=== PATIENT | female | born 1950 | race Caucasian/White ===

== ENCOUNTER → 2016-04-25 | Outpatient (CLI) | payer BC ==
--- NOTE | 2016-04-25 15:53 | DX ---
PA and Lateral Chest April 25, 2016 Indication: Cough and fatigue. Cardiac ablation March 2016. Comparison: Two-view chest dated June 29, 2015 Findings: The right lung is hypoventilated with new linear right basilar atelectasis. The left lung i s clear with unchanged linear scarring in the peripheral left midlung. Mild cardiomegaly and configur ation of the 3-lead pacemaker (with leads in right atrium, right ventricle, and coronary sinus) are u nchanged. No pneumothorax, pulmonary edema, consolidation, or effusion. Impression: 1. New right basilar atelectasis 2. No pleural effusion or evidence of failure. 3. Cardiomegaly unchanged.
== END ==
LOC: FIMAGING 15:38
PROVIDERS: ATTEND Family Medicine
DX: J98.11 Atelectasis (principal); I51.7 Cardiomegaly

== ENCOUNTER 2016-05-07 15:33 | Inpatient (IN) | payer BC ==
[2016-05-07] MEDS ORDERED: FUROSEMIDE 20 MG/2 ML VIAL IVP ONE (16:22)
[2016-05-07 17:07] LABS: ALANINE AMINOTRANSFERASE 50 IU/L (9-52); ALBUMIN 3.6 g/dL (3.5-5.0); ALKALINE PHOSPHATASE 153 IU/L (38-126); ANION GAP 12 mEq/L (8-16); ASPARTATE AMINOTRANSFERASE 44 IU/L (14-46); BILIRUBIN,TOTAL 1.8 mg/dL (0.1-1.4); CALCIUM 8.3 mg/dL (8.5-10.4); CARBON DIOXIDE 27 mEq/l (22-31); CHLORIDE 101 mEq/L (97-110); CREATININE 0.9 mg/dL (0.6-1.0); GLOMERULAR FILTRATION RATE > 60; GLUCOSE 92 mg/dL (70-100); MAGNESIUM 2.1 mg/dL (1.6-2.3); POTASSIUM 3.9 mEq/L (3.5-5.2); SODIUM 140 mEq/L (134-144); TOTAL PROTEIN 7.1 g/dL (6.3-8.2)
[2016-05-07 17:11] LABS: % IMMATURE GRANULYOCYTES 0.4 % (0.0-1.1); ABSOLUTE IMMATURE GRANULOCYTES 0.02 10^3/uL (0.00-0.10); ADD DIFF? NO; ADD MORPH? NO; ADD SCAN? NO; ATYPICAL LYMPHOCYTE FLAG 0 (0-99); FRAGMENT RBC FLAG 0 (0-99); HEMATOCRIT 44.8 % (38.0-47.0); HEMOGLOBIN 14.5 g/dL (12.6-16.3); LEFT SHIFT FLG 0 (0-99); LIPEMIA HEMOLYSIS FLAG 80 (0-99); MEAN CELL HEMOGLOBIN 30.3 pg (27.9-34.1); MEAN CELL HEMOGLOBIN CONCENTR. 32.4 g/dL (32.4-36.7); MEAN CELL VOLUME 93.7 fL (81.5-99.8); MEAN PLATELET VOLUME 11.1 fL (8.7-11.7); PLATELET CLUMPS FLAG 0 (0-99); PLATELET COUNT 187 10^3/uL (150-400); RED BLOOD CELL COUNT 4.78 10^6/uL (4.18-5.33); RED CELL DISTRIBUTION WIDTH 15.4 % (11.5-15.2)
[2016-05-07 17:15] LABS: PROTIME(PATIENT) 46.9 SEC (12.0-15.0)
[2016-05-07 17:18] LABS: INR 4.92 (0.83-1.16)
[2016-05-07 17:19] LABS: TROPONIN I 0.041 ng/mL (0-0.034)
--- NOTE | 2016-05-07 17:32 | DX ---
Chest, PA and Lateral History: CHF Comparison: April 25, 2016 PA and lateral Findings: A horizontal band density in the right lower lung is consistent with persistent platter ate lectasis. Cardiomegaly with normal pulmonary vascularity remains. Relative elevation of the right hem idiaphragm is again present and may indicate underlying hepatomegaly. Left chest wall pacer device wi th 3 pacer leads, including a coronary sinus lead, remains in place. EKG leads overlie the chest. Impression: 1. Little if any change x2 weeks. 2. Cardiomegaly without obvious decompensation.
[2016-05-07] MEDS: CARVEDILOL 6.25 MG TAB PO SCH (17:35)
[2016-05-07 18:21] LABS: COLOR PALE YELLOW; LEUKOCYTE ESTERASE,URINE 1+ (NEGATIVE); NITRITE,URINE NEGATIVE (NEGATIVE)
[2016-05-07 18:24] LABS: BACTERIA TRACE /hpf (NONE SEEN); MUCUS TRACE /lpf (NONE-1+)
[2016-05-07] MEDS: VALSARTAN 80 MG TAB PO SCH (21:46)
[2016-05-08] MEDS ORDERED: NITROGLYCERIN 0.4 MG BTL SL PRN (08:43)
[2016-05-08] MEDS: CARVEDILOL 6.25 MG TAB PO SCH ×2 (08:45→18:15)
[2016-05-08] MEDS: VALSARTAN 80 MG TAB PO SCH ×2 (08:49→20:53)
[2016-05-08] MEDS: ATORVASTATIN CALCIUM 40 MG TAB PO SCH (08:49)
[2016-05-08] MEDS: SERTRALINE HCL 50 MG TAB PO SCH (08:49)
[2016-05-08] MEDS: SPIRONOLACTONE 25 MG TAB PO SCH (08:49)
[2016-05-08] MEDS ORDERED: SPIRONOLACTONE 25 MG TAB PO SCH (09:00)
[2016-05-08] MEDS ORDERED: ONDANSETRON DISINTEGRATING 4 MG TAB PO PRN (09:49)
[2016-05-08] MEDS ORDERED: ONDANSETRON 4 MG/2 ML VIAL IVP PRN (09:49)
[2016-05-08] MEDS: ASPIRIN EC 81 MG TAB PO SCH (10:34)
--- NOTE | 2016-05-08 12:40 | SOAPPROG ---
ROGER Progress Note Assessment/Plan: Assessment: CHF note 65 y/o woman with CAD s/p remote PCI LAD in 2006, chronic ischemic chf last measured LVEF 40%, PAF and paroxysmal atach with BIVPPM who was admitted with dyspnea at rest and long sustained VT from clinic yesterday. Recent l/r cardiac cath 03/04 showed mild-moderate non-obstructive CAD with patent LAD stent and RHC: RA 16, PA 33/21, PCWP 14, CO/CI 4.1/1.9 L/min and echo 04/03 showed LVEF 40 % with mild-moderate MR and moderate TR. She reports is tired, short of breath at rest, has CP when she walks and feels her heart race. REC: 1)lasix 40mg IV q8hr 2)hold warfarin 3)upgrade to BIVAICD next week when INR < 1.6. 4)I will ask Dr. Castillo to do another right heart cath with swan mary beth hemodynamics in EP lab before AICD. I don't feel strongly she needs another coronary angiogram. 5)KCL 20meq PO TID. Keep K 4.5-5.2 6)rest of meds without changes. 7)unclear why RA 16 and low CI on last cath with LVEF at 40%. Question if patient has sarcoid. Would recommend PET scan at [facility] as out-pt in 1-2 months. 05/08/16 12:32 Subjective: Pt reports short of breath at rest and extreme fatigue. has CP and heart racing when walks 10-20ft. Has dry cough. Doesn't feel any different than yesterday. Objective: Vital Signs Temp Pulse Resp BP Pulse Ox 36.6 C 64 18 116/73 97 05/08/16 08:00 05/08/16 08:45 05/08/16 08:00 05/08/16 08:45 05/08/16 08:00 Laboratory Results 05/07/16 16:40 05/07/16 16:40 05/07/16 05/08/16 05/09/16 05:59 05:59 05:59 Intake Total 500 Output Total 300 Balance 200 PT 46.9 SEC (12.0-15.0) H 05/07/16 16:40 INR 4.92 (0.83-1.16) H 05/07/16 16:40 Physical Exam - Physical Exam General Appearance: obese EENT: PERRL/EOMI Neck: non-tender Respiratory: rales (at bases bilaterally.), No wheezing Cardiac/Chest: regular rate, rhythm, JVD (jvp to 7-8cm), systolic murmur, No gallop Peripheral Pulses: 2+: carotid (R), carotid (L), femoral (R), femoral (L), dorsalis-pedis (R), dorsalis-pedis (L) Abdomen: non-tender, soft, No organomegaly Skin: warm/dry Extremities: non-tender, No pedal edema Neuro/Psych: alert ICD10 Worksheet Patient Problems: Problems Problem Status Diagnosed Atrial fibrillation or flutter Acute Bradycardia Acute CHF (congestive heart failure) Acute Chest pain Acute Elevated troponin Acute
[2016-05-08] MEDS: FUROSEMIDE 100 MG/10 ML VIAL IVP SCH ×2 (13:16→15:47)
[2016-05-08] MEDS ORDERED: WARFARIN SODIUM 2.5 MG TAB PO SCH (16:00)
[2016-05-08] MEDS ORDERED: POTASSIUM CL 20 MEQ PKT PO SCH (16:00)
[2016-05-08] MEDS: FUROSEMIDE 40 MG/4 ML VIAL IVP SCH (20:53)
[2016-05-08] MEDS: POTASSIUM CL 20 MEQ TAB PO SCH (20:53)
[2016-05-08 21:19] LABS: ANION GAP 11 mEq/L (8-16); CALCIUM 8.1 mg/dL (8.5-10.4); CARBON DIOXIDE 29 mEq/l (22-31); CHLORIDE 98 mEq/L (97-110); CREATININE 0.9 mg/dL (0.6-1.0); GLOMERULAR FILTRATION RATE > 60; GLUCOSE 162 mg/dL (70-100); POTASSIUM 4.2 mEq/L (3.5-5.2); SODIUM 138 mEq/L (134-144)
[2016-05-08] MEDS: TEMAZEPAM 15 MG CAP PO PRN (23:14)
[2016-05-09] MEDS: FUROSEMIDE 40 MG/4 ML VIAL IVP SCH ×2 (04:19→15:15)
[2016-05-09 04:37] LABS: HEMATOCRIT 44.5 % (38.0-47.0); HEMOGLOBIN 14.2 g/dL (12.6-16.3); MEAN CELL HEMOGLOBIN 30.1 pg (27.9-34.1); MEAN CELL HEMOGLOBIN CONCENTR. 31.9 g/dL (32.4-36.7); MEAN CELL VOLUME 94.3 fL (81.5-99.8); RED BLOOD CELL COUNT 4.72 10^6/uL (4.18-5.33); RED CELL DISTRIBUTION WIDTH 15.2 % (11.5-15.2)
[2016-05-09 05:04] LABS: INR 4.21 (0.83-1.16); PROTIME(PATIENT) 41.4 SEC (12.0-15.0)
[2016-05-09 05:08] LABS: ANION GAP 8 mEq/L (8-16); CALCIUM 8.8 mg/dL (8.5-10.4); CARBON DIOXIDE 29 mEq/l (22-31); CHLORIDE 102 mEq/L (97-110); CREATININE 0.9 mg/dL (0.6-1.0); GLOMERULAR FILTRATION RATE > 60; GLUCOSE 98 mg/dL (70-100); MAGNESIUM 2.3 mg/dL (1.6-2.3); POTASSIUM 4.5 mEq/L (3.5-5.2); SODIUM 139 mEq/L (134-144)
[2016-05-09] MEDS: POTASSIUM CL 20 MEQ TAB PO SCH ×2 (09:06→21:59)
[2016-05-09] MEDS: SERTRALINE HCL 50 MG TAB PO SCH (09:06)
[2016-05-09] MEDS: ATORVASTATIN CALCIUM 40 MG TAB PO SCH (09:06)
[2016-05-09] MEDS: ASPIRIN EC 81 MG TAB PO SCH (09:06)
[2016-05-09] MEDS: VALSARTAN 80 MG TAB PO SCH (09:07)
[2016-05-09] MEDS: CARVEDILOL 6.25 MG TAB PO SCH ×2 (09:07→18:22)
[2016-05-09] MEDS: SPIRONOLACTONE 25 MG TAB PO SCH (09:07)
--- NOTE | 2016-05-09 14:21 | PDCARPN ---
Cardiology Progress Note Chief Complaint: Patient reports continues feeling short of breath with rest. Assessment/Plan: Assessment: 65-year-old female with history of CAD status post PCI of LAD in 2006, PAF and paroxysmal atrial tachycardia (EP procedure March 2016 unable to ablate successfully), remote Bi V PPM, obesity, and hyperlipidemia. Seen in office by Dr. Castillo on May 07 for complain of ongoing shortness of breath for greater than 2 weeks. Pacer interrogation shows 3 episodes of sustained ventricular tachycardia, longest was 9 minutes with average ventricular rate at 200 BPM. Most recent echocardiogram (04/07/2016) showed LV mildly dilated with reduced systolic function, EF 35%. Diastolic function dysfunction grade 2, global hypokinesis with septal thinning and dyskinesis, RV systolic function was moderately reduced, RV moderately dilated, LA is moderately to severely dilated , RA is moderately dilated, dilated inferior cava suggesting increased RA pressures, iacj-[id number] MR, severe TR, wide open TR,, RVSP 25 mm Hg, trace to mild AI, mild PI. Not admissions, noted BNP of 4460, mild troponin of 0.041. Downward trend since hospitalization. Supratherapeutic INR of 4.92. Overnight IV diuresed with Lasix 80 mg q.8 hours, weight is down 1 kilos, patient reports mild improvement in SOB, denies of any chest pressure. 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 Today, normal electrolyte and renal function, INR remains supratherapeutic at 4.21. Afebrile, hypotensive with systolic blood pressures in 80s. Patient reports ongoing fatigue and shortness with mild improvement after diuresis. Denies of any episodes of chest pressure. Plan: 1. Combined it chronic ischemic/nonischemic cardiomyopathy: NYHA class III-IV symptoms. Hypotensive after IV Lasix Q 8 hours. Will decrease her Diovan dose to 40 mg twice daily, stay with holding p.m. dose to this evening, decrease Lasix to 40 mg twice daily, with holding dose if systolic blood pressure less than 90 mm Hg. Continue on current dose of carvedilol, and Aldactone. Patient has Bi V pacing for resynchronization therapy, plan on right heart catheterization prior to device upgrade. Questions sarcoidosis, Dr. Dong recommends PET scan in 1-2 months as an outpatient 2. CAD: Patient had been reporting chest pressure with exertion, mild elevated troponin on downward decline (0.036 05/07). If continues to have chest pressure, consideration left heart catheterization also. Continue on anti- platelet therapy of aspirin, p.r.n. nitroglycerin 3. VT: Recent device check showing VT up to 9 minutes. Plan on generator upgrade to AICD when INR less than or equal to 1.6 4. AFib: Currently in sinus rhythm, Tikosyn due to VT. Continue on carvedilol. INRs are supratherapeutic, warfarin on hold for procedure. 5. Hyperlipidemia: Continue on home dose of atorvastatin. 6. DVT precaution: Supratherapeutic INR 7. Code status: Patient is a full code. 05/09/16 14:18 Subjective: Patient reports continuation of shortness of breath at rest, denies of any chest pain, palpitations, lightheadedness. Reviewed/Discussed With: multidisciplinary team (RN), other (Dr Stoll) Objective: Vital Signs (8 Hrs) Temp Pulse Resp BP Pulse Ox 05/09/16 12:00 36.7 C 63 20 87/58 L 96 05/09/16 07:31 36.8 C 89 18 95/71 L 96 Intake/Output (24 Hrs) 05/08/16 05/09/16 05/10/16 05:59 05:59 05:59 Intake Total 500 1610 250 Output Total 300 1750 1000 Balance 200 -140 -750 Intake: Oral (ml) 500 1610 250 Output: Urine (ml) 300 1750 1000 Toilet 300 1750 1000 Other: Weight 102.7 kg 102.4 kg Intake Quantity Yes Sufficient Output Comment Toilet reports one small laci-colored piece of stool Number of Stools Toilet 1 Result Diagrams: 05/09/16 04:19 05/09/16 04:19 Cardiac Labs: Cardiac Lab Results (72 Hrs) 05/07/16 05/07/16 22:10 16:40 Troponin I 0.036 H 0.041 H - Physical Exam Constitutional: WDWN, obese Ears, Nose, Mouth, Throat: moist mucous membranes Cardiovascular: regular rate and rhythm, systolic murmur (3/6 systolic murmur along left sternal border.), pulses symmetric bilat, No no murmurs, No jugular vein distention, No carotid bruit Peripheral Pulses: 1+: dorsalis-pedis (R), dorsalis-pedis (L), 2+: carotid (R), carotid (L) Gastrointestinal: other (Lungs diminished in bases bilateral, no rubs or rhonchi severe wheezing noted. No accessary muscle use, no intercostal muscle retraction noted) Skin: no rashes, warm, no edema Neurologic: AAOx3 Psychiatric: cooperative, interactive, following commands ICD10 Worksheet Patient Problems: Problems Problem Status Diagnosed Atrial fibrillation or flutter Acute Bradycardia Acute CHF (congestive heart failure) Acute Chest pain Acute Elevated troponin Acute
--- NOTE | 2016-05-09 15:16 | DX ---
PA and lateral chest - May 09, 2016 History: Shortness of breath, possible CHF. Comparison: PA and lateral chest May 07, 2016. Findings: Lung volumes remain low with elevation of the right hemidiaphragm. A linear opacity in the right lung base suggesting platelike atelectasis is not significantly changed. There is no pneumothor ax or visible pleural effusion. Moderate cardiomegaly is stable. 3-lead left subclavian pacemaker is again noted. The bones are stable. Impression: Stable chest with platelike atelectasis in the right lung base.
[2016-05-09] MEDS ORDERED: POTASSIUM CL 20 MEQ/15 ML UDCUP PO SCH (21:00)
[2016-05-09] MEDS: TEMAZEPAM 15 MG CAP PO PRN (21:59)
[2016-05-10 04:25] LABS: INR 3.38 (0.83-1.16); PROTIME(PATIENT) 34.7 SEC (12.0-15.0)
[2016-05-10 04:36] LABS: ANION GAP 10 mEq/L (8-16); CALCIUM 8.6 mg/dL (8.5-10.4); CARBON DIOXIDE 28 mEq/l (22-31); CHLORIDE 102 mEq/L (97-110); CREATININE 0.8 mg/dL (0.6-1.0); GLOMERULAR FILTRATION RATE > 60; GLUCOSE 91 mg/dL (70-100); POTASSIUM 4.7 mEq/L (3.5-5.2); SODIUM 140 mEq/L (134-144)
[2016-05-10] MEDS: CARVEDILOL 6.25 MG TAB PO SCH ×3 (05:08→18:04)
--- NOTE | 2016-05-10 08:32 | CPEKG ---
Heart Rate: 95 RR Interval: 632 P-R Interval: 140 QRSD Interval: 148 QT Interval: 432 QTC Interval: 543 QRS Moore: 119 T Wave Moore: 29 EKG Severity - ABNORMAL ECG - EKG Impression: A-V DUAL-PACED COMPLEXES W/ SOME INHIBITION Electronically Signed By: Seymour Pichardo 11-May-2016 10:06:40
[2016-05-10] MEDS: SPIRONOLACTONE 25 MG TAB PO SCH (08:36)
[2016-05-10] MEDS: SERTRALINE HCL 50 MG TAB PO SCH (08:36)
[2016-05-10] MEDS: VALSARTAN 40 MG TAB PO SCH ×2 (08:36→20:41)
[2016-05-10] MEDS: POTASSIUM CL 20 MEQ TAB PO SCH ×2 (08:36→20:40)
[2016-05-10] MEDS: ASPIRIN EC 81 MG TAB PO SCH (08:37)
[2016-05-10] MEDS: ATORVASTATIN CALCIUM 40 MG TAB PO SCH (08:37)
[2016-05-10] MEDS: FUROSEMIDE 40 MG/4 ML VIAL IVP SCH ×2 (10:26→15:01)
--- NOTE | 2016-05-10 13:24 | PDCARPN ---
Cardiology Progress Note Assessment/Plan: Assessment/Plan: Assessment: 65-year-old female with history of CAD status post PCI of LAD in 2006, PAF and paroxysmal atrial tachycardia (EP procedure March 2016 unable to ablate successfully), remote Bi V PPM, obesity, and hyperlipidemia. Seen in office by Dr. Castillo on May 07 for complain of ongoing shortness of breath for greater than 2 weeks. Pacer interrogation shows 3 episodes of sustained ventricular tachycardia, longest was 9 minutes with average ventricular rate at 200 BPM. Most recent echocardiogram (04/07/2016) showed LV mildly dilated with reduced systolic function, EF 35%. Diastolic function dysfunction grade 2, global hypokinesis with septal thinning and dyskinesis, RV systolic function was moderately reduced, RV moderately dilated, LA is moderately to severely dilated , RA is moderately dilated, dilated inferior cava suggesting increased RA pressures, [id number] MR, severe TR, wide open TR,, RVSP 25 mm Hg, trace to mild AI, mild PI. Not admissions, noted BNP of 4460, mild troponin of 0.041. Downward trend since hospitalization. Supratherapeutic INR of 4.92. Overnight IV diuresed with Lasix 80 mg q.8 hours, weight is down 1 kilos, patient reports mild improvement in SOB, denies of any chest pressure. 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 Today, normal electrolyte and renal function, INR remains supratherapeutic at 4.21. Afebrile, hypotensive with systolic blood pressures in 80s. Patient reports ongoing fatigue and shortness with mild improvement after diuresis. Denies of any episodes of chest pressure. Plan: 1. Combined it chronic ischemic/nonischemic cardiomyopathy: NYHA class III-IV symptoms. Hypotensive after IV Lasix Q 8 hours. Will decrease her Diovan dose to 40 mg twice daily, stay with holding p.m. dose to this evening, decrease Lasix to 40 mg twice daily, with holding dose if systolic blood pressure less than 90 mm Hg. Continue on current dose of carvedilol, and Aldactone. Patient has Bi V pacing for resynchronization therapy, plan on right heart catheterization prior to device upgrade. Questions sarcoidosis, Dr. Garcia recommends PET scan in 1-2 months as an outpatient 2. CAD: Patient had been reporting chest pressure with exertion, mild elevated troponin on downward decline (0.036 1/19). If continues to have chest pressure, consideration left heart catheterization also. Continue on anti- platelet therapy of aspirin, p.r.n. nitroglycerin 3. VT: Recent device check showing VT up to 9 minutes. Plan on generator upgrade to AICD when INR less than or equal to 1.6 4. AFib: Currently in sinus rhythm, Tikosyn due to VT. Continue on carvedilol. INRs are supratherapeutic, warfarin on hold for procedure. 5. Hyperlipidemia: Continue on home dose of atorvastatin. 6. DVT precaution: Supratherapeutic INR JJD: THE PATIENT CONTINUES TO HAVE AN ELEVATED INR AT 3.38 WILL GIVE ORAL VITAMIN K TO GET THAT TO AROUND 2 SO THAT BI V DEFIB UPGRADE CAN PROCEED HOPEFULLY IN AM. Plan: 05/10/16 13:21 Reviewed/Discussed With: hospitalist Time Spent With Patient: 15 MINUTES Objective: Vital Signs (8 Hrs) Temp Pulse Resp BP Pulse Ox 05/10/16 11:34 36.6 C 90 16 98/72 L 97 05/10/16 10:24 96/63 L 05/10/16 07:51 36.9 C 67 19 85/69 L 95 Intake/Output (24 Hrs) 05/09/16 05/10/16 05/11/16 05:59 05:59 05:59 Intake Total 1610 850 Output Total 1750 1100 Balance -140 -250 Intake: Oral (ml) 1610 850 Output: Urine (ml) 1750 1100 Toilet 1750 1100 Other: Weight 102.4 kg 103 kg Intake Quantity Yes Yes Sufficient Output Comment Toilet reports one small laci-colored piece of stool Number of Voids Toilet 3 Number of Stools Toilet 1 Result Diagrams: 05/09/16 04:19 05/10/16 03:34 Cardiac Labs: Cardiac Lab Results (72 Hrs) 05/07/16 05/07/16 22:10 16:40 Troponin I 0.036 H 0.041 H - Physical Exam Constitutional: obese Eyes: PERRL, anicteric sclera Ears, Nose, Mouth, Throat: moist mucous membranes Cardiovascular: systolic murmur, irregularly irregular Respiratory: no crackles, no wheezes, reduced air movement Gastrointestinal: normoactive bowel sounds Neurologic: AAOx3 Psychiatric: cooperative, interactive, anxious - . Pending Discharge Within 24 Hours: No Pending Discharge Within 48 Hours: No ICD10 Worksheet Patient Problems: Problems Problem Status Diagnosed Atrial fibrillation or flutter Acute Bradycardia Acute CHF (congestive heart failure) Acute Chest pain Acute Elevated troponin Acute
[2016-05-10] MEDS ORDERED: PHYTONADIONE 2.5 MG/2.5 ML ORAL UDL PO ONE (13:25)
[2016-05-10] MEDS: TEMAZEPAM 15 MG CAP PO PRN (23:02)
[2016-05-11 05:18] LABS: INR 1.81 (0.83-1.16); PROTIME(PATIENT) 21.1 SEC (12.0-15.0)
[2016-05-11 05:19] LABS: APTT 37.7 SEC (23.0-38.0)
[2016-05-11 05:21] LABS: % IMMATURE GRANULYOCYTES 0.2 % (0.0-1.1); ABSOLUTE IMMATURE GRANULOCYTES 0.01 10^3/uL (0.00-0.10); ADD DIFF? NO; ADD MORPH? NO; ADD SCAN? NO; ATYPICAL LYMPHOCYTE FLAG 50 (0-99); FRAGMENT RBC FLAG 20 (0-99); HEMATOCRIT 41.7 % (38.0-47.0); HEMOGLOBIN 13.4 g/dL (12.6-16.3); LEFT SHIFT FLG 0 (0-99); LIPEMIA HEMOLYSIS FLAG 80 (0-99); MEAN CELL HEMOGLOBIN 30.6 pg (27.9-34.1); MEAN CELL HEMOGLOBIN CONCENTR. 32.1 g/dL (32.4-36.7); MEAN CELL VOLUME 95.2 fL (81.5-99.8); MEAN PLATELET VOLUME 11.4 fL (8.7-11.7); PLATELET CLUMPS FLAG 10 (0-99); PLATELET COUNT 142 10^3/uL (150-400); RED BLOOD CELL COUNT 4.38 10^6/uL (4.18-5.33); RED CELL DISTRIBUTION WIDTH 15.2 % (11.5-15.2)
[2016-05-11] MEDS ORDERED: diphenhydrAMINE 25 MG CAP PO ONE ×2 (06:00→15:00)
[2016-05-11] MEDS ORDERED: NS 1,000 ML IV ONE (06:00)
[2016-05-11] MEDS ORDERED: DIAZEPAM 5 MG TAB PO ONE ×2 (06:00→15:00)
[2016-05-11] MEDS ORDERED: BACITRACIN IRRIGATION/NS 50,000 UNITS/1,000 ML BTL IRR ONE (06:00)
[2016-05-11 06:21] LABS: ALANINE AMINOTRANSFERASE 45 IU/L (9-52); ALBUMIN 2.9 g/dL (3.5-5.0); ALKALINE PHOSPHATASE 152 IU/L (38-126); ANION GAP 9 mEq/L (8-16); ASPARTATE AMINOTRANSFERASE 30 IU/L (14-46); BILIRUBIN,TOTAL 1.5 mg/dL (0.1-1.4); CALCIUM 8.4 mg/dL (8.5-10.4); CARBON DIOXIDE 28 mEq/l (22-31); CHLORIDE 102 mEq/L (97-110); CREATININE 0.7 mg/dL (0.6-1.0); GLOMERULAR FILTRATION RATE > 60; GLUCOSE 85 mg/dL (70-100); POTASSIUM 4.4 mEq/L (3.5-5.2); SODIUM 139 mEq/L (134-144); TOTAL PROTEIN 6.2 g/dL (6.3-8.2)
[2016-05-11] MEDS: POTASSIUM CL 20 MEQ TAB PO SCH ×2 (09:30→20:26)
[2016-05-11] MEDS: CARVEDILOL 6.25 MG TAB PO SCH ×2 (09:30→20:26)
[2016-05-11] MEDS: VALSARTAN 40 MG TAB PO SCH ×2 (09:30→20:26)
[2016-05-11] MEDS: FUROSEMIDE 40 MG/4 ML VIAL IVP SCH ×2 (09:31→20:30)
[2016-05-11] MEDS: ATORVASTATIN CALCIUM 40 MG TAB PO SCH (09:57)
[2016-05-11] MEDS: SPIRONOLACTONE 25 MG TAB PO SCH (09:57)
[2016-05-11] MEDS: ASPIRIN EC 81 MG TAB PO SCH (09:57)
[2016-05-11] MEDS: SERTRALINE HCL 50 MG TAB PO SCH (09:58)
--- NOTE | 2016-05-11 12:24 | PDCARPN ---
Cardiology Progress Note Assessment/Plan: Assessment: Ischemic and nonischemic cardiomyopathy Left ventricular ejection fraction 35% Sustained ventricular tachycardia for 9 minutes - plan upgrade to biventricular ICD from biventricular pacemaker today. Plan to measure right heart pressures at the same time - risk of device change discussed with the patient including risk of infection and risk of LV lead dislodgement. - Advised patient not to drive for 6 months - evaluation for sarcoidosis with PET-CT scan in 1-[address] Garcia 05/11/16 12:22 Objective: Vital Signs (8 Hrs) Temp Pulse Resp BP Pulse Ox 05/11/16 08:00 36.7 C 67 16 102/78 96 Intake/Output (24 Hrs) 05/10/16 05/11/16 05/12/16 11:59 11:59 11:59 Intake Total 600 250 Output Total 400 1974 Balance 200 -1725 Intake: Oral (ml) 600 250 Output: Urine (ml) 400 1974 Toilet 400 1974 Other: Weight 103 kg 103.1 kg Intake Quantity Yes npo Sufficient Number of Voids Toilet 3 2 Number of Stools Toilet 1 Result Diagrams: 05/11/16 04:22 05/11/16 04:22 ICD10 Worksheet Patient Problems: Problems Problem Status Diagnosed Atrial fibrillation or flutter Acute Bradycardia Acute CHF (congestive heart failure) Acute Chest pain Acute Elevated troponin Acute
[2016-05-11] MEDS ORDERED: ceFAZolin 2 GM/DEXTROSE 100 ML IV ONE (12:30)
[2016-05-11] MEDS ORDERED: IOPAMIDOL (ISOVUE-370) 150 ML BTL IV ONE (15:47)
[2016-05-11] MEDS ORDERED: BUPIVACAINE 0.5% 30 ML SDV ONE (15:47)
[2016-05-11] MEDS ORDERED: LIDOCAINE 1% 30 ML SDV ONE (15:47)
[2016-05-11] MEDS ORDERED: MIDAZOLAM 2 MG/2 ML VIAL ONE (16:03)
[2016-05-11] MEDS ORDERED: LIDOCAINE 2% 100 MG/5 ML SYR IVP ONE (16:11)
[2016-05-11] MEDS ORDERED: PROPOFOL/EMULSION 500 MG/50 ML BOTTLE IV ONE (16:11)
--- NOTE | 2016-05-11 18:44 | CPEKG ---
Heart Rate: 70 RR Interval: 857 P-R Interval: 140 QRSD Interval: 150 QT Interval: 488 QTC Interval: 527 P Duarte: 134 QRS Duarte: 203 T Wave Duarte: 70 EKG Severity - ABNORMAL ECG - EKG Impression: ATRIAL-VENTRICULAR DUAL-PACED RHYTHM Electronically Signed By: Heron Meredith 11-May-2016 19:51:21
--- NOTE | 2016-05-11 18:58 | DX ---
Portable Chest , 18:50 History: Pacemaker placement Comparison: May 09 Findings: A new left chest wall defibrillator device has been placed. A left atrial, 2 left ventricul ar and 1 coronary sinus lead are present. There is no pneumothorax. Inspiratory phase is poor. An obl ique band density in the right lower lung is stable. The costophrenic gutters remain sharp. Impression: Excellent position of a new right ventricular auto defibrillator lead. No pneumothorax.
[2016-05-11] MEDS: HYDROCODONE/APAP 5/325 TAB PO PRN (21:24)
[2016-05-11] MEDS: TEMAZEPAM 15 MG CAP PO PRN (23:11)
[2016-05-12] MEDS: HYDROCODONE/APAP 5/325 TAB PO PRN (05:24)
[2016-05-12 05:33] LABS: % IMMATURE GRANULYOCYTES 0.2 % (0.0-1.1); ABSOLUTE IMMATURE GRANULOCYTES 0.01 10^3/uL (0.00-0.10); ADD DIFF? NO; ADD MORPH? NO; ADD SCAN? NO; ATYPICAL LYMPHOCYTE FLAG 20 (0-99); FRAGMENT RBC FLAG 0 (0-99); HEMATOCRIT 41.9 % (38.0-47.0); HEMOGLOBIN 13.5 g/dL (12.6-16.3); LEFT SHIFT FLG 0 (0-99); LIPEMIA HEMOLYSIS FLAG 80 (0-99); MEAN CELL HEMOGLOBIN CONCENTR. 32.2 g/dL (32.4-36.7); MEAN CELL VOLUME 96.1 fL (81.5-99.8); MEAN PLATELET VOLUME 10.8 fL (8.7-11.7); PLATELET CLUMPS FLAG 0 (0-99); PLATELET COUNT 140 10^3/uL (150-400); RED BLOOD CELL COUNT 4.36 10^6/uL (4.18-5.33); RED CELL DISTRIBUTION WIDTH 15.2 % (11.5-15.2)
[2016-05-12 05:44] LABS: INR 1.35 (0.83-1.16); PROTIME(PATIENT) 16.7 SEC (12.0-15.0)
[2016-05-12 06:06] LABS: ANION GAP 8 mEq/L (8-16); CALCIUM 8.4 mg/dL (8.5-10.4); CARBON DIOXIDE 28 mEq/l (22-31); CHLORIDE 102 mEq/L (97-110); CREATININE 0.7 mg/dL (0.6-1.0); GLOMERULAR FILTRATION RATE > 60; GLUCOSE 97 mg/dL (70-100); POTASSIUM 4.7 mEq/L (3.5-5.2); SODIUM 138 mEq/L (134-144)
[2016-05-12] MEDS: FUROSEMIDE 40 MG/4 ML VIAL IVP SCH (09:02)
[2016-05-12] MEDS: CARVEDILOL 6.25 MG TAB PO SCH ×2 (09:02→18:05)
[2016-05-12] MEDS: POTASSIUM CL 20 MEQ TAB PO SCH (09:02)
[2016-05-12] MEDS: ASPIRIN EC 81 MG TAB PO SCH (09:03)
[2016-05-12] MEDS: ATORVASTATIN CALCIUM 40 MG TAB PO SCH (09:03)
[2016-05-12] MEDS: SERTRALINE HCL 50 MG TAB PO SCH (09:04)
[2016-05-12] MEDS: VALSARTAN 40 MG TAB PO SCH (09:04)
--- NOTE | 2016-05-12 09:05 | CPEKG ---
Heart Rate: 70 RR Interval: 857 P-R Interval: 136 QRSD Interval: 134 QT Interval: 476 QTC Interval: 514 QRS Spearman: -51 T Wave Spearman: 125 EKG Severity - ABNORMAL ECG - EKG Impression: ATRIAL-VENTRICULAR DUAL-PACED COMPLEXES EKG Impression: LEFT BUNDLE BRANCH BLOCK Electronically Signed By: Heron Meredith 13-May-2016 08:24:05
[2016-05-12] MEDS: SPIRONOLACTONE 25 MG TAB PO SCH (09:24)
--- NOTE | 2016-05-12 11:29 | DX ---
Chest, PA and Lateral History: Post pacer placement COMPARISON: Portable exam yesterday Findings: A left chest wall pacer device with overlying skin mony remains in stable position. The 4 pacer leads are unchanged in position and again overlie the enlarged heart. There is stable platter atelectasis in the right lower lung. There is no pneumothorax or pleural fluid. EKG leads again over lie the chest. Impression: Stable pacer placement.
[2016-05-12] MEDS ORDERED: FUROSEMIDE 40 MG/4 ML VIAL IVP ONE (11:41)
[2016-05-12] MEDS ORDERED: PROTOCOL MAGNESIUM 1 DOSE IV PRN (11:51)
[2016-05-12] MEDS ORDERED: PROTOCOL POTASSIUM 1 DOSE MISC PRN (11:51)
[2016-05-12] MEDS ORDERED: METOLAZONE 2.5 MG TAB PO ONE (12:00)
--- NOTE | 2016-05-12 14:15 | PDCARPN ---
Cardiology Progress Note Chief Complaint: She has incisonal site pain, report no significant improvement in SOB Assessment/Plan: Assessment: 65-year-old female with history of CAD status post PCI of LAD in 2006, PAF and paroxysmal atrial tachycardia (EP procedure March 2016 unable to ablate successfully), remote Bi V PPM, obesity, and hyperlipidemia. Seen in office by Dr. Castillo on May 07 for complain of ongoing shortness of breath for greater than 2 weeks. Pacer interrogation shows 3 episodes of sustained ventricular tachycardia, longest was 9 minutes with average ventricular rate at 200 BPM. Most recent echocardiogram (04/07/2016) showed LV mildly dilated with reduced systolic function, EF 35%. Diastolic function dysfunction grade 2, global hypokinesis with septal thinning and dyskinesis, RV systolic function was moderately reduced, RV moderately dilated, LA is moderately to severely dilated , RA is moderately dilated, dilated inferior cava suggesting increased RA pressures, [id number] MR, severe TR, wide open TR,, RVSP 25 mm Hg, trace to mild AI, mild PI. Noted BNP on admission of 4460, mild troponin of 0.041. Downward trend since hospitalization. Upgraded by Bi V AICD done yesterday by Dr. Castillo. Incision intact, dressing CDI, no redness, swelling, or drainage noted. No ecchymosis or hematoma. AICD check done today showing device functioning within normal limits, noting frequent PVCs. Potassium within normal limits. INR 1.3, chest x-ray showing atelectasis in right lower lobe no pneumothorax, stable pacer placement. Electrocardiogram at this time shows AV paced with occasional PVC. No runs no runs of VT on continuous cardiac monitoring. Renal function wnl. Patient reports ongoing shortness of breath has improved with diuresis. Patient up in chair, able to walk around room. No significant weight loss. Plan: 1. Combined it chronic ischemic/nonischemic cardiomyopathy: NYHA class III-IV symptoms. No significant weight loss in the last few days, despite IV diuretics. Discussed with Dr. Stoll, increase Lasix to 80 mg IV today, who give 1 dose of metolazone had 2.5 mg.. Placed on magnesium and potassium electrolyte protocol. Device upgrade yesterday Bi V AICD and new RV lead implantation. No complications. Continue on carvedilol, valsartan, and Aldactone. Strict daily weights, I&Os. Questions sarcoidosis, Dr. Dong recommends PET scan in 1-2 months as an outpatient 2. CAD: Patient reports no further episodes of chest pressure in the last 2 days. mild elevated troponin on admission with downward decline (0.036 05/07). Continue on anti-platelet therapy of aspirin, p.r.n. nitroglycerin 3. VT: No episodes this hospitalization, AICD, monitoring potassium and magnesium. 4. AFib: Currently AV paced, Tikosyn DC per Dr. Castillo. Continue on carvedilol as above, restarted on warfarin, will not be bridged with Lovenox to prevent hematoma in new device pocket. Repeat INR in a.m.. 5. Hyperlipidemia: Continue on home dose of atorvastatin. 6. Atelectasis in right lower lobe: Incentive spirometer q.1 hour while awake. Patient up in chair, and walking. 7. DVT precaution: Restarted on warfarin 8. Code status: Patient is a full code. 05/12/16 14:12 Subjective: Patient denies any cp or palpitation. Report continue to have SOB at rest with little improvement since admission Objective: Vital Signs (8 Hrs) Temp Pulse Resp BP Pulse Ox 05/12/16 12:00 36.8 C 87 17 95/66 L 94 05/12/16 08:00 36.7 C 70 18 93/66 L 95 Intake/Output (24 Hrs) 05/11/16 05/12/16 05/13/16 05:59 05:59 05:59 Intake Total 250 510 Output Total 1100 1325 550 Balance -850 -815 -550 Intake: Oral (ml) 250 500 IV Intake (ml) 10 Output: Urine (ml) 1100 1325 550 Toilet 1100 1325 550 Other: Weight 103.1 kg 102.8 kg Intake Quantity npo Sufficient Number of Voids Toilet 2 Number of Stools Toilet 1 Result Diagrams: 05/12/16 05:19 05/12/16 05:19 - Physical Exam Constitutional: no apparent distress, obese Ears, Nose, Mouth, Throat: moist mucous membranes Cardiovascular: regular rate and rhythm, jugular vein distention (2/3 systolic murmur noted over left sternal border), pulses symmetric bilat, No carotid bruit Peripheral Pulses: 1+: dorsalis-pedis (R), dorsalis-pedis (L), 2+: carotid (R), carotid (L) Respiratory: other (Lungs diminished in bases bilateral, no rhonchi, rales, or wheezing noted.) Gastrointestinal: normoactive bowel sounds, no masses Skin: warm, no edema Neurologic: AAOx3, CN II-XII grossly intact Psychiatric: cooperative, interactive, following commands ICD10 Worksheet Patient Problems: Problems Problem Status Diagnosed Atrial fibrillation or flutter Acute Bradycardia Acute CHF (congestive heart failure) Acute Chest pain Acute Elevated troponin Acute
[2016-05-12] MEDS ORDERED: FUROSEMIDE 100 MG/10 ML VIAL IVP SCH (15:00)
[2016-05-12] MEDS: WARFARIN SODIUM 2.5 MG TAB PO SCH (18:05)
[2016-05-12 19:16] LABS: POTASSIUM 4.7 mEq/L (3.5-5.2)
[2016-05-12] MEDS ORDERED: ENOXAPARIN 100 MG/ML SYR SC SCH (21:00)
[2016-05-12] MEDS: TEMAZEPAM 15 MG CAP PO PRN (21:18)
[2016-05-12] MEDS: ACETAMINOPHEN 325 MG TAB PO PRN (21:18)
[2016-05-13] MEDS: VALSARTAN 40 MG TAB PO SCH ×2 (04:07→08:34)
[2016-05-13 05:18] LABS: INR 1.3 (0.83-1.16); PROTIME(PATIENT) 16.2 SEC (12.0-15.0)
[2016-05-13 05:37] LABS: ANION GAP 9 mEq/L (8-16); CALCIUM 8.7 mg/dL (8.5-10.4); CARBON DIOXIDE 30 mEq/l (22-31); CHLORIDE 97 mEq/L (97-110); CREATININE 0.7 mg/dL (0.6-1.0); GLOMERULAR FILTRATION RATE > 60; GLUCOSE 93 mg/dL (70-100); MAGNESIUM 2.2 mg/dL (1.6-2.3); POTASSIUM 4.2 mEq/L (3.5-5.2); SODIUM 136 mEq/L (134-144)
[2016-05-13] MEDS: CARVEDILOL 6.25 MG TAB PO SCH ×2 (08:32→17:24)
[2016-05-13] MEDS: ASPIRIN EC 81 MG TAB PO SCH (08:33)
[2016-05-13] MEDS: ATORVASTATIN CALCIUM 40 MG TAB PO SCH (08:33)
[2016-05-13] MEDS: SERTRALINE HCL 50 MG TAB PO SCH (08:34)
[2016-05-13] MEDS: SPIRONOLACTONE 25 MG TAB PO SCH (08:37)
[2016-05-13] MEDS ORDERED: FUROSEMIDE 80 MG in D5W 50 ML IV SCH (09:00)
[2016-05-13] MEDS ORDERED: METOLAZONE 5 MG TAB PO ONE (09:21)
[2016-05-13] MEDS ORDERED: NS 250 ML IV ONE (13:21)
--- NOTE | 2016-05-13 14:11 | PDCARPN ---
Cardiology Progress Note Chief Complaint: Reports improvement in shortness of breath. Assessment/Plan: Assessment: 65-year-old female with history of CAD status post PCI of LAD in 2006, PAF and paroxysmal atrial tachycardia (EP procedure March 2016 unable to ablate successfully), remote Bi V PPM, obesity, and hyperlipidemia. Seen in office by Dr. Castillo on May 07 for complain of ongoing shortness of breath for greater than 2 weeks. Pacer interrogation shows 3 episodes of sustained ventricular tachycardia, longest was 9 minutes with average ventricular rate at 200 BPM. Most recent echocardiogram (04/07/2016) showed LV mildly dilated with reduced systolic function, EF 35%. Diastolic function dysfunction grade 2, global hypokinesis with septal thinning and dyskinesis, RV systolic function was moderately reduced, RV moderately dilated, LA is moderately to severely dilated , RA is moderately dilated, dilated inferior cava suggesting increased RA pressures, [id number] MR, severe TR, wide open TR, RVSP 25 mm Hg, trace to mild AI, mild PI. Noted BNP on admission of 4460, mild troponin of 0.041. Downward trend since hospitalization. Upgraded by Bi V AICD done 05/12/[address] Castillo. AICD check done on 05/12/2016 showing device functioning within normal limits, noting frequent PVCs. Potassium within normal limits. No significant change in INR, 1.3, restarted warfarin yesterday, not bridging due to prevent hematoma in AICD pocket. Weight is down 1.5 kilos. Patient AV paced occasional PVC., occasional couplet noted, no VT. BUN creatinine staying stable despite increasing diuresis. Patient reports shortness of breath has improved, has noted lightheadedness episodes briefly when standing since starting. Plan: 1. Combined it chronic ischemic/nonischemic cardiomyopathy: NYHA class III-IV symptoms. Improvement in weight loss with the increase of Lasix and adding low- dose metolazone. Patient's weight is down 1.5 kilos from yesterday. Discussed with Dr. Dong today, will increase metolazone to 5 mg, no change in Lasix dosage. Continue on current diuretic dose. Continue on Diovan, Coreg, and Aldactone. Strict daily weights, I&Os. Questions sarcoidosis, Dr. Dong recommends PET scan in 1-2 months as an outpatient 2. CAD: Patient reports no further episodes of chest pressure in the last 2 days. mild elevated troponin on admission with downward decline (0.036 05/07). Continue on anti-platelet therapy of aspirin, p.r.n. nitroglycerin 3. VT: No episodes this hospitalization, AICD, monitoring potassium and magnesium. 4. AFib: Currently AV paced. Continue on carvedilol as above, subtherapeutic INRs at 1.3, restarted on warfarin yesterday. Not bridged with Lovenox to prevent hematoma in new device pocket. Repeat INR in a.m.. 5. Hyperlipidemia: Continue on home dose of atorvastatin. 6. Atelectasis in right lower lobe: Incentive spirometer q.1 hour while awake. Patient up in chair, and walking. 7. DVT precaution: Restarted on warfarin 8. Code status: Patient is a full code. 05/13/16 10:15 Subjective: Patient reports improvement in dyspnea on exertion, reports some lightheadedness with positional changing, denies of any chest pain or pressure. Denies of any palpitations, near-syncope or syncopal events. Denies of any therapeutic shocks from AICD. Reviewed/Discussed With: other (Dr Garcia and Dr Valentine) Objective: Vital Signs (8 Hrs) Temp Pulse Resp BP Pulse Ox 05/13/16 11:45 36.4 C 85 13 75/48 L 93 05/13/16 08:34 90/71 L 05/13/16 08:32 90 90/71 L 05/13/16 07:44 36.7 C 89 19 89/61 L 95 Intake/Output (24 Hrs) 05/12/16 05/13/16 05/14/16 05:59 05:59 05:59 Intake Total 510 1000 Output Total 1325 4250 Balance -815 -3250 Intake: Oral (ml) 500 1000 IV Intake (ml) 10 Output: Urine (ml) 1325 4250 Toilet 1325 4250 Other: Weight 102.8 kg 101.3 kg Number of Voids Toilet 1 Number of Stools Toilet 1 Result Diagrams: 05/12/16 05:19 05/13/16 04:14 - Physical Exam Constitutional: no apparent distress, obese Ears, Nose, Mouth, Throat: moist mucous membranes Cardiovascular: regular rate and rhythm (AV paced with occasional PVC.), no rubs , no gallops, systolic murmur (1 to 2/6 along left sternal border.), jugular vein distention (3-4 cm above sternal notch at a 45 degree angle.), pulses symmetric bilat, No carotid bruit Peripheral Pulses: 1+: dorsalis-pedis (R), dorsalis-pedis (L), 2+: carotid (R), carotid (L) Respiratory: other (Lungs are clear but diminished in bases bilateral, no rhonchi rales or wheezes uses, no accessory muscle use, no intercostal muscle retraction of) Gastrointestinal: normoactive bowel sounds Skin: warm, no edema Neurologic: AAOx3, CN II-XII grossly intact Psychiatric: cooperative, interactive, following commands ICD10 Worksheet Patient Problems: Problems Problem Status Diagnosed Atrial fibrillation or flutter Acute Bradycardia Acute CHF (congestive heart failure) Acute Chest pain Acute Elevated troponin Acute
[2016-05-13] MEDS: WARFARIN SODIUM 2.5 MG TAB PO SCH (16:35)
--- NOTE | 2016-05-13 17:37 | SOAPPROG ---
SOAP Progress Note Assessment/Plan: Assessment: CHF note 65 y/o woman with CAD s/p remote PCI LAD in 2006, chronic ischemic chf last measured LVEF 40%, PAF and paroxysmal atach with BIVPPM who was admitted with dyspnea at rest and long sustained VT from clinic yesterday. Recent l/r cardiac cath 03/04 showed mild-moderate non-obstructive CAD with patent LAD stent and RHC: RA 16, PA 33/21, PCWP 14, CO/CI 4.1/1.9 L/min and echo 04/03 showed LVEF 40 % with mild-moderate MR and moderate TR. She is s/p AICD implantation with NSVT. She has tiredness, cough, MCDANIEL at 10-20ft still. I am unclear all her symptoms are coming from her heart issues. In past, aggressive diuresis has just made her prerenal and hypotensive. She has never not had 4-5 symptoms going on. PLAN: 1)decrease Diovan to 40mg PO qam. 2)hold IV lasix and PO Metalozone if SBP < 90. 3)AM labs (CBC, BMP, BNP and random serum cortisol level) 4)continue using incentive spirometer. Subjective: reports she feels a little better than one week ago. Still with non-productive cough, MCDANIEL at 10-20ft and tiredness. Denies CP or syncope or PND. Objective: Vital Signs Temp Pulse Resp BP Pulse Ox 36.7 C 85 16 90/68 L 93 05/13/16 15:53 05/13/16 17:24 05/13/16 15:53 05/13/16 17:24 05/13/16 15:53 Laboratory Results 05/12/16 05:19 05/13/16 04:14 05/12/16 05/13/16 05/14/16 05:59 05:59 05:59 Intake Total 510 1000 1230 Output Total 1325 4250 725 Balance -815 -3250 505 PT 16.2 SEC (12.0-15.0) H 05/13/16 04:14 INR 1.30 (0.83-1.16) H 05/13/16 04:14 Physical Exam - Physical Exam General Appearance: alert, obese EENT: normal ENT inspection Neck: full range of motion Respiratory: other (poor inspiratory effort. Rare wheezes throughout.) Cardiac/Chest: regular rate, rhythm, systolic murmur, No gallop, No JVD Peripheral Pulses: 2+: carotid (R), carotid (L), femoral (R), femoral (L), dorsalis-pedis (R), dorsalis-pedis (L) Abdomen: non-tender, No organomegaly, No ascites Skin: warm/dry Extremities: No pedal edema Neuro/Psych: alert ICD10 Worksheet Patient Problems: Problems Problem Status Diagnosed Atrial fibrillation or flutter Acute Bradycardia Acute CHF (congestive heart failure) Acute Chest pain Acute Elevated troponin Acute
[2016-05-13 19:07] LABS: MAGNESIUM 2.2 mg/dL (1.6-2.3); POTASSIUM 3.9 mEq/L (3.5-5.2)
[2016-05-13] MEDS ORDERED: POTASSIUM CL 10 MEQ TAB PO ONE (20:54)
[2016-05-13] MEDS: TEMAZEPAM 15 MG CAP PO PRN (22:54)
[2016-05-14 05:51] LABS: INR 1.4 (0.83-1.16); PROTIME(PATIENT) 17.1 SEC (12.0-15.0)
[2016-05-14 06:10] LABS: ANION GAP 8 mEq/L (8-16); CALCIUM 8.6 mg/dL (8.5-10.4); CARBON DIOXIDE 34 mEq/l (22-31); CHLORIDE 95 mEq/L (97-110); CREATININE 0.8 mg/dL (0.6-1.0); GLOMERULAR FILTRATION RATE > 60; GLUCOSE 87 mg/dL (70-100); MAGNESIUM 2.2 mg/dL (1.6-2.3); POTASSIUM 4.3 mEq/L (3.5-5.2); SODIUM 137 mEq/L (134-144)
[2016-05-14] MEDS ORDERED: POTASSIUM CL 20 MEQ TAB PO SCH (09:00)
[2016-05-14] MEDS ORDERED: AMIODARONE HCL 100 ML IV ONE (09:12)
[2016-05-14] MEDS ORDERED: AMIODARONE HCL 200 ML IV ONE (09:12)
[2016-05-14] MEDS: TORSEMIDE 20 MG TAB PO SCH (10:04)
[2016-05-14] MEDS: SERTRALINE HCL 50 MG TAB PO SCH (10:05)
[2016-05-14] MEDS: ASPIRIN EC 81 MG TAB PO SCH (10:09)
[2016-05-14] MEDS: SPIRONOLACTONE 25 MG TAB PO SCH (10:10)
[2016-05-14] MEDS: VALSARTAN 40 MG TAB PO SCH (10:10)
[2016-05-14] MEDS: CARVEDILOL 6.25 MG TAB PO SCH ×2 (10:12→17:38)
[2016-05-14] MEDS: ATORVASTATIN CALCIUM 40 MG TAB PO SCH (10:13)
[2016-05-14] MEDS ORDERED: AMIODARONE HCL 540 MG in D5W 300 ML IV ONE (15:00)
[2016-05-14] MEDS: WARFARIN SODIUM 2.5 MG TAB PO SCH (15:20)
--- NOTE | 2016-05-14 15:31 | PDCARPN ---
Cardiology Progress Note Chief Complaint: patient reports fatigue. Assessment/Plan: Assessment: 65-year-old female with history of CAD status post PCI of LAD in 2006, PAF and paroxysmal atrial tachycardia (EP procedure March 2016 unable to ablate successfully), remote Bi V PPM, obesity, and hyperlipidemia. Seen in office by Dr. Castillo on May 07 for complain of ongoing shortness of breath for greater than 2 weeks. Pacer interrogation shows 3 episodes of sustained ventricular tachycardia, longest was 9 minutes with average ventricular rate at 200 BPM. Most recent echocardiogram (04/07/2016) showed LV mildly dilated with reduced systolic function, EF 35%. Diastolic function dysfunction grade 2, global hypokinesis with septal thinning and dyskinesis, RV systolic function was moderately reduced, RV moderately dilated, LA is moderately to severely dilated , RA is moderately dilated, dilated inferior cava suggesting increased RA pressures, [id number] MR, severe TR, wide open TR, RVSP 25 mm Hg, trace to mild AI, mild PI. Noted BNP on admission of 4460, mild troponin of 0.041. Downward trend since hospitalization. Upgraded by Bi V AICD done 05/12/[address] Castillo. AICD check done on 05/12/2016 showing device functioning within normal limits, noting frequent PVCs. Chloride mildly down and CO2 up post IV Lasix and metolazone. BNP improved at 1690 today. Hypotensive yesterday afternoon, requiring 250 mL IV fluid bolus. Patient asymptomatic. PM dose of Lasix held. Diovan has been decreased by Dr. Dong. Patient noted have several runs of nonsustained ventricular tachycardia , rate of 140 BPM. Potassium and magnesium within normal limits. Patient asymptomatic, no therapeutic shocks from AICD. INR still remains subtherapeutic at 1.4. No significant weight loss overnight. Patient was seen with Dr. Mcguire, Plan: 1. Combined it chronic ischemic/nonischemic cardiomyopathy: NYHA class III-IV symptoms. No further significant weight loss, patient with episode of hypotension post diuresis of IV Lasix and metolazone. Discussed with Dr. Dong , will resume patient on home diuretic. Continue on New reduced dose of Diovan, Coreg, and Aldactone. Strict daily weights, I&Os. Questions sarcoidosis, Dr. Dong recommends PET scan in 1-2 months as an outpatient 2. CAD: Patient reports no chest pressure Continue on anti-platelet therapy of aspirin, p.r.n. nitroglycerin 3. VT: Patient having multiple runs of nonsustained ventricular tachycardia through the evening and this morning, ventricular rate 140 BPM. Potassium and magnesium within normal limits. No therapeutic shocks from AICD. Per Dr. Mcguire request, have started patient on IV amiodarone protocol. risk of medications were explained to the patient, she verbalizes understanding. 4. AFib: Currently AV paced. no AFib noted. Continue on carvedilol as above, Now also on IV amiodarone. subtherapeutic INRs at 1.4, Restarted on warfarin post AICD implantation. Not bridged with Lovenox to prevent hematoma in new device pocket. Repeat INR in a.m.. 5. Hyperlipidemia: Continue on home dose of atorvastatin. 6. Atelectasis in right lower lobe: improved, Incentive spirometer q.1 hour while awake. Patient up in chair, and walking. 7. DVT precaution: Restarted on warfarin 8. Code status: Patient is a full code. 05/14/16 15:30 Subjective: patient reports ongoing fatigue, MCDANIEL with exertion. Denies of any chest pain, palpitations lightheadedness claudication, orthopnea PND, edema, near-syncope, or syncopal events. Reviewed/Discussed With: other (Dr Mcguire and Dr Garcia) Objective: Vital Signs (8 Hrs) Temp Pulse Resp BP Pulse Ox 05/14/16 15:12 36.7 C 70 20 105/76 92 05/14/16 11:11 36.4 C 70 17 94/78 L 91 L 05/14/16 10:29 108/64 05/14/16 10:25 16 107/74 94 05/14/16 07:40 36.7 C 89 15 94/70 L 94 Intake/Output (24 Hrs) 05/13/16 05/14/16 05/15/16 05:59 05:59 05:59 Intake Total 1000 1430 400 Output Total 4250 1225 650 Balance -3250 205 -250 Intake: Oral (ml) 1000 1180 400 IV Intake (ml) 250 Output: Urine (ml) 4250 1225 650 Toilet 4250 1225 650 Other: Weight 101.3 kg 101 kg Intake Quantity Yes Sufficient Number of Voids Toilet 1 2 Number of Stools Toilet 1 1 Result Diagrams: 05/12/16 05:19 05/14/16 04:41 - Physical Exam Constitutional: no apparent distress, obese Ears, Nose, Mouth, Throat: moist mucous membranes Cardiovascular: regular rate and rhythm, no rubs, no gallops, systolic murmur (2 /6 LSB), pulses symmetric bilat, No jugular vein distention Peripheral Pulses: 1+: dorsalis-pedis (R), dorsalis-pedis (L), 2+: carotid (R), carotid (L) Respiratory: other ( lungs diminished in bases bilateral, no rhonchi rales or wheezes noted.) Gastrointestinal: normoactive bowel sounds Skin: warm, No no edema Neurologic: AAOx3, CN II-XII grossly intact Psychiatric: cooperative, interactive ICD10 Worksheet Patient Problems: Problems Problem Status Diagnosed Atrial fibrillation or flutter Acute Bradycardia Acute CHF (congestive heart failure) Acute Chest pain Acute Elevated troponin Acute
[2016-05-14] MEDS: TEMAZEPAM 15 MG CAP PO PRN (22:33)
[2016-05-15 05:02] LABS: ANION GAP 10 mEq/L (8-16); CALCIUM 8.6 mg/dL (8.5-10.4); CARBON DIOXIDE 32 mEq/l (22-31); CHLORIDE 95 mEq/L (97-110); CREATININE 0.9 mg/dL (0.6-1.0); GLOMERULAR FILTRATION RATE > 60; GLUCOSE 141 mg/dL (70-100); INR 1.49 (0.83-1.16); POTASSIUM 3.2 mEq/L (3.5-5.2); SODIUM 137 mEq/L (134-144)
[2016-05-15] MEDS: POTASSIUM CL 20 MEQ TAB PO SCH ×4 (08:43→16:19)
[2016-05-15] MEDS: TORSEMIDE 20 MG TAB PO SCH (08:46)
[2016-05-15] MEDS: ASPIRIN EC 81 MG TAB PO SCH (08:48)
[2016-05-15] MEDS: ATORVASTATIN CALCIUM 40 MG TAB PO SCH (08:49)
[2016-05-15] MEDS: VALSARTAN 40 MG TAB PO SCH ×2 (08:49→12:05)
[2016-05-15] MEDS: CARVEDILOL 6.25 MG TAB PO SCH ×2 (08:49→17:58)
[2016-05-15] MEDS: SPIRONOLACTONE 25 MG TAB PO SCH (08:49)
[2016-05-15] MEDS: SERTRALINE HCL 50 MG TAB PO SCH (08:50)
[2016-05-15] MEDS ORDERED: AMIODARONE HCL 200 MG TAB PO SCH (09:00)
[2016-05-15 09:16] LABS: MAGNESIUM 2.1 mg/dL (1.6-2.3)
[2016-05-15] MEDS ORDERED: AMIODARONE HCL 200 MG TAB PO ONE (09:30)
[2016-05-15] MEDS: PANTOPRAZOLE SODIUM 40 MG TAB PO SCH ×2 (09:45→19:55)
--- NOTE | 2016-05-15 13:38 | PDCARPN ---
Cardiology Progress Note Chief Complaint: patient reports shortness of breath as improved Assessment/Plan: Assessment: 65-year-old female with history of CAD status post PCI of LAD in 2006 (Cath02/27 showing no flow limiting disease, EF 40-45%, RA 16, RV 38/15, PA 33/21, PCWP 14 CO 4.06, CI 1.91), PAF and paroxysmal atrial tachycardia (EP procedure March 2016 unable to ablate successfully), remote Bi V PPM, obesity, and hyperlipidemia. Seen in office by Dr. Castillo on May 07 for complain of ongoing shortness of breath for greater than 2 weeks. Pacer interrogation shows 3 episodes of sustained ventricular tachycardia, longest was 9 minutes with average ventricular rate at 200 BPM. Most recent echocardiogram (2015) showed LV mildly dilated with reduced systolic function, EF 35%. Diastolic function dysfunction grade 2, global hypokinesis with septal thinning and dyskinesis, RV systolic function was moderately reduced, RV moderately dilated, LA is moderately to severely dilated, RA is moderately dilated, dilated inferior cava suggesting increased RA pressures, [id number] MR, severe TR, wide open TR, RVSP 25 mm Hg, trace to mild AI, mild PI. Noted BNP on admission of 4460, mild troponin of 0.041. Downward trend since hospitalization. Upgraded by Bi V AICD done 05/12/[address] Castillo. AICD check done on 05/12/2016 showing device functioning within normal limits, noting frequent PVCs. Patient noted to have no further runs VT, but occasional to frequent PVCs. Magnesium within normal limits, potassium 3.2. TSH done with starting amiodarone, 5.010. Patient has had a 1 kilos weight loss dropped since since yesterday on oral diuretics, noted to be mildly hypotensive, with blood pressures down to low 80s. Plan: 1. Combined it chronic ischemic/nonischemic cardiomyopathy: NYHA class III-IV symptoms. 1 kilos weight loss last night after switching to home dose of torsemide, noted to be mildly hypotensive this morning. Held valsartan, and reduce torsemide to 40 mg q.day. Continue on carvedilol and Aldactone. Daily weights and strict I&Os. Questions sarcoidosis, Dr. Dong recommends PET scan in 1-2 months as an outpatient 2. CAD: Patient reports no chest pressure Continue on anti-platelet therapy of aspirin, p.r.n. nitroglycerin 3. VT: Yesterday runs of nonsustained VT, Occasional to frequent PVCs, but no further runs of NSVT since starting amiodarone.improved with IV amiodarone, complete 24 hour protocol dosing, started on oral, per Dr. Mcguire, he wants her on 400 mg three times daily for 2 weeks then 400 mg twice daily for 2 weeks then 400 mg q.day. AICD implantation done. EKG in a.m. 4. Hypokalemia: Replacement therapy ordered. repeat potassium at 6:00 p.m.. 5. AFib: Currently AV paced. no AFib noted. Continue on carvedilol as above, Now also on IV amiodarone. subtherapeutic INRs at 1.4, Restarted on warfarin post AICD implantation. Not bridged with Lovenox to prevent hematoma in new device pocket. Repeat INR in a.m.. 6. Hyperlipidemia: Continue on home dose of atorvastatin. 7. Low TSH: Started on amiodarone, will check free T3 and T4 in a.m.. 8. DVT precaution: Restarted on warfarin 9. Code status: Patient is a full code. 05/15/16 13:30 Subjective: patient reports shortness of breath has improved, denies of any chest pressure or pain. Does report mild lightheadedness with positional change. Reviewed/Discussed With: other (Dr Castelan and Dr Stoll) Objective: Vital Signs (8 Hrs) Temp Pulse Resp BP Pulse Ox 05/15/16 12:10 91/66 L 05/15/16 11:46 36.9 C 84 18 78/57 L 90 L 05/15/16 08:08 36.6 C 82 17 97/70 L 97 Intake/Output (24 Hrs) 05/14/16 05/15/16 05/16/16 05:59 05:59 05:59 Intake Total 1430 1722.4 Output Total 1225 1800 650 Balance 205 -77.6 -650 Intake: Oral (ml) 1180 800 IV Intake (ml) 250 IV Infused (ml) 922.4 Amiodarone HCl 100 ml @ 222 600 mls/hr IV ONCE ONE Rx #:[id number] Amiodarone HCl 540 mg In 500.4 D5w 300 ml @ 16.667 mls/ hr IV ONCE@1500 ONE Rx#: [id number] Amiodarone HCl 200 ml @ 200 33.333 mls/hr IV ONCE ONE Rx#:[id number] Output: Urine (ml) 1225 1800 650 Toilet 1225 1800 650 Other: Weight 100.3 kg Intake Quantity Yes Sufficient Number of Voids Toilet 2 Number of Stools Toilet 1 Result Diagrams: 05/12/16 05:19 05/15/16 03:54 - Physical Exam Constitutional: WDWN, obese Ears, Nose, Mouth, Throat: moist mucous membranes Cardiovascular: regular rate and rhythm, systolic murmur ( 2/6 systolic along left sternal border.), pulses symmetric bilat, No jugular vein distention Peripheral Pulses: 1+: dorsalis-pedis (R), dorsalis-pedis (L), 2+: carotid (R), carotid (L) Respiratory: other ( Lungs clear but diminished in bases bilateral, no rhonchi , rales, or wheezing noted, no accessory muscle use, no intercostal muscle retraction noted.) Gastrointestinal: normoactive bowel sounds, No tenderness Neurologic: AAOx3, CN II-XII grossly intact Psychiatric: cooperative, interactive, following commands, not anxious ICD10 Worksheet Patient Problems: Problems Problem Status Diagnosed Atrial fibrillation or flutter Acute Bradycardia Acute CHF (congestive heart failure) Acute Chest pain Acute Elevated troponin Acute
[2016-05-15] MEDS: AMIODARONE HCL 200 MG TAB PO SCH ×2 (14:13→22:12)
[2016-05-15] MEDS: WARFARIN SODIUM 2.5 MG TAB PO SCH (16:18)
[2016-05-15 18:14] LABS: POTASSIUM 3.6 mEq/L (3.5-5.2)
[2016-05-15] MEDS ORDERED: POTASSIUM CL 20 MEQ TAB PO ONE (19:30)
[2016-05-15] MEDS: TEMAZEPAM 15 MG CAP PO PRN (22:12)
[2016-05-16] MEDS: FAMOTIDINE 20 MG TAB PO SCH ×2 (00:29→10:22)
[2016-05-16] MEDS: SIMETHICONE 80 MG TAB CHEW PO PRN ×2 (00:30→18:25)
[2016-05-16] MEDS: ACETAMINOPHEN 325 MG TAB PO PRN (00:30)
[2016-05-16] MEDS: TEMAZEPAM 15 MG CAP PO PRN ×2 (01:45→23:31)
[2016-05-16] MEDS: AMIODARONE HCL 200 MG TAB PO SCH ×3 (05:03→21:44)
[2016-05-16] MEDS: HYDROCODONE/APAP 5/325 TAB PO PRN (05:03)
--- NOTE | 2016-05-16 09:10 | SOAPPROG ---
SOAP Progress Note Assessment/Plan: Assessment: 1. Coronary artery disease with previous LAD PCI in 2006 and cardiac catheterization in February of 2016 without demonstrable obstructive disease. 2. Severe cardiomyopathy with an ejection fraction below 30-35%. This is thought to be disproportionate related to her underlying coronary disease history. 3. Chronic systolic congestive heart failure. 4. History of sustained ventricular tachycardia. Currently on amiodarone. 5. History of previous permanent pacemaker implantation with recent upgrade to a biventricular pacemaker defibrillator. 6. History of paroxysmal atrial fibrillation and paroxysmal atrial tachycardia with recent unsuccessful ablation procedure. 7. Current complaints of epigastric fullness, increased irritation and flatulence. Her cardiovascular status appears to be stable. She appears to be well compensated at the present time. Has no indication of rales or edema. Strictly from this perspective she could be discharged today. He is, however, complaining gastrointestinal symptoms which may or may not be related to her current hospitalization. Yesterday was the 1st day using simethicone and Protonix. Unclear to me why she is also written for Pepcid. Her INR is subtherapeutic. Plan: 1. I discontinued her oxygen. I would like to see what his room air saturations are. 2. I would like to get her upper walking on the lai today. 3. Will observe her to see if there medication changes affect her current complaints. If not, we will consider consultation with GI . 4. Hopefully, she can be discharged later today. 5. Will follow her INRs. I do not think that she needs be bridged at the present time. 6. Will discontinue famotidine. 5. Will reduce the torsemide down to 20 mg daily and increase Aldactone up to 25 mg daily. 6. We will plan to follow her electrolytes. 05/16/16 09:24 Subjective: Patient seen and examined. Her medical record was reviewed. This is my 1st day on service. Cardiovascular history is significant for coronary artery disease. She had PCI of the LAD back in 2006. cardiac catheterization in February demonstrated patent stent, ejection fraction of 40-45% and well- compensated right heart hemodynamics with a wedge pressure of 14 mmHg. She has a history of PAF and PAT. She had an ablation procedure in March 2016 that apparently was "Unsuccessful." She has a previous dual-chamber pacemaker. She was admitted to the hospital with symptoms of fatigue and dyspnea. Her pacemaker interrogation Demonstrated lengthy episodes of ventricular tachycardia. As result, she underwent upgrade of her pacemaker to a biventricular defibrillator. Additionally, she was placed on amiodarone. Since then, she has been stable. She has diuresed and has not had any recurrent episodes of ventricular tachycardia. She notes that her breathing has improved. She has no edema. She is able lie flat without orthopnea. Her current complaint is that of epigastric fullness, increased eructation in flatulence. Objective: Vital Signs Temp Pulse Resp BP Pulse Ox 36.7 C 73 16 99/72 L 97 05/16/16 08:00 05/16/16 08:00 05/16/16 08:00 05/16/16 08:00 05/16/16 08:00 Laboratory Results 05/12/16 05:19 05/15/16 05/16/16 05/17/16 05:59 05:59 05:59 Intake Total 1722.4 700 Output Total 1800 2350 Balance -77.6 -1650 PT 18.0 SEC (12.0-15.0) H 05/15/16 03:54 INR 1.49 (0.83-1.16) H 05/15/16 03:54 Physical Exam - Physical Exam General Appearance: WD/WN, other ( Obese) EENT: PERRL/EOMI Neck: non-tender, full range of motion Respiratory: lungs clear Cardiac/Chest: regular rate, rhythm, other ( she has an ICD in the left infraclavicular fossa. Tranquillity are in place. The wound was well approximated.) , No edema, No gallop, No JVD Peripheral Pulses: 2+: carotid (R), carotid (L) Abdomen: non-tender, soft ICD10 Worksheet Patient Problems: Problems Problem Status Diagnosed Atrial fibrillation or flutter Acute Bradycardia Acute CHF (congestive heart failure) Acute Chest pain Acute Elevated troponin Acute
[2016-05-16 09:22] LABS: INR 1.83 (0.83-1.16); PROTIME(PATIENT) 21.2 SEC (12.0-15.0)
[2016-05-16] MEDS ORDERED: SPIRONOLACTONE 25 MG TAB PO SCH (09:23)
[2016-05-16 09:29] LABS: ANION GAP 8 mEq/L (8-16); CARBON DIOXIDE 34 mEq/l (22-31); CHLORIDE 95 mEq/L (97-110); CREATININE 1.1 mg/dL (0.6-1.0); GLOMERULAR FILTRATION RATE 50; GLUCOSE 102 mg/dL (70-100); POTASSIUM 4.1 mEq/L (3.5-5.2); SODIUM 137 mEq/L (134-144)
[2016-05-16] MEDS ORDERED: TORSEMIDE 20 MG TAB PO SCH ×2 (10:00)
[2016-05-16] MEDS: CARVEDILOL 6.25 MG TAB PO SCH (10:15)
[2016-05-16] MEDS: ATORVASTATIN CALCIUM 40 MG TAB PO SCH (10:15)
[2016-05-16] MEDS: PANTOPRAZOLE SODIUM 40 MG TAB PO SCH ×2 (10:15→21:44)
[2016-05-16] MEDS: VALSARTAN 40 MG TAB PO SCH (10:15)
[2016-05-16] MEDS: ASPIRIN EC 81 MG TAB PO SCH (10:16)
[2016-05-16] MEDS: SERTRALINE HCL 50 MG TAB PO SCH (10:16)
[2016-05-16] MEDS: POTASSIUM CL 20 MEQ TAB PO SCH (10:20)
[2016-05-16] MEDS: SPIRONOLACTONE 25 MG TAB PO SCH (10:23)
[2016-05-16] MEDS: WARFARIN SODIUM 2.5 MG TAB PO SCH (17:18)
--- NOTE | 2016-05-16 20:13 | CPEKG ---
Heart Rate: 74 RR Interval: 811 P-R Interval: 112 QRSD Interval: 168 QT Interval: 512 QTC Interval: 569 P Luling: 0 QRS Luling: 0 T Wave Luling: 50 EKG Severity - ABNORMAL ECG - EKG Impression: A-V DUAL-PACED RHYTHM WITH SOME INHIBITION AND INTRINSIC VENTRICULAR ACTIVATION Electronically Signed By: Heron Meredith 17-May-2016 16:24:06
[2016-05-16] MEDS: DOCUSATE SODIUM 100 MG CAP PO SCH (23:31)
[2016-05-17] MEDS: AMIODARONE HCL 200 MG TAB PO SCH ×3 (07:38→23:10)
[2016-05-17 08:57] LABS: ANION GAP 8 mEq/L (8-16); CALCIUM 8.9 mg/dL (8.5-10.4); CARBON DIOXIDE 33 mEq/l (22-31); CHLORIDE 94 mEq/L (97-110); CREATININE 1.1 mg/dL (0.6-1.0); GLOMERULAR FILTRATION RATE 50; GLUCOSE 95 mg/dL (70-100); SODIUM 135 mEq/L (134-144)
[2016-05-17 08:58] LABS: INR 2.13 (0.83-1.16)
[2016-05-17] MEDS: DOCUSATE SODIUM 100 MG CAP PO SCH ×2 (09:55→19:37)
[2016-05-17] MEDS: ASPIRIN EC 81 MG TAB PO SCH (09:55)
[2016-05-17] MEDS: SERTRALINE HCL 50 MG TAB PO SCH (09:55)
[2016-05-17] MEDS: ATORVASTATIN CALCIUM 40 MG TAB PO SCH (09:55)
[2016-05-17] MEDS: PANTOPRAZOLE SODIUM 40 MG TAB PO SCH ×2 (09:55→19:37)
[2016-05-17] MEDS: POTASSIUM CL 20 MEQ TAB PO SCH (09:56)
[2016-05-17] MEDS: VALSARTAN 40 MG TAB PO SCH (11:28)
[2016-05-17] MEDS ORDERED: MAGNESIUM HYDROXIDE 30 ML UDCUP PO ONE (12:01)
--- NOTE | 2016-05-17 12:05 | SOAPPROG ---
SOAP Progress Note Assessment/Plan: Assessment: 1. Coronary artery disease with previous LAD PCI in 2006 and cardiac catheterization in February of 2016 without demonstrable obstructive disease. 2. Severe cardiomyopathy with an ejection fraction below 30-35%. This is thought to be disproportionate related to her underlying coronary disease history. 3. Chronic systolic congestive heart failure. 4. History of sustained ventricular tachycardia. Currently on amiodarone. 5. History of previous permanent pacemaker implantation with recent upgrade to a biventricular pacemaker defibrillator. 6. History of paroxysmal atrial fibrillation and paroxysmal atrial tachycardia with recent unsuccessful ablation procedure. 7. Current complaints of epigastric fullness, increased irritation and flatulence. She appears to be stable with respect to her cardiac disease. She has no indication of heart failure. Her arrhythmias are under nice control. She was, however, hypotensive last night. I think this is likely on the basis of over diuresis. It is concerning that she continues to have abdominal discomfort. Plan: 1. Today, I will hold her diuretics. 2. I will restart her beta-blockers and ARB. 3. I have consulted gastroenterology regarding her abdominal complaints. 4. Will carefully follow her electrolytes and INR. 5. Early next week she will need to have her mony removed from her ICD implantation site. 05/17/16 12:06 Subjective: Last night, she states that she, once again, experience significant direct taken , flatulence, obstipation and tenesmus. I was also contacted last evening that her blood pressures were running low. As a result, her heart failure medications were held this morning. She states that she is currently feeling good. She is not experiencing any symptoms of dyspnea, orthopnea, PND or edema. She has not had any dysrhythmias noted on telemetry. Objective: Vital Signs Temp Pulse Resp BP Pulse Ox 36.5 C 70 18 105/73 91 L 05/17/16 11:40 05/17/16 11:40 05/17/16 11:40 05/17/16 11:40 05/17/16 11:40 Laboratory Results 05/12/16 05:19 05/17/16 08:14 05/16/16 05/17/16 05/18/16 05:59 05:59 05:59 Intake Total 700 1450 Output Total 2350 1750 Balance -1650 -300 PT 24.0 SEC (12.0-15.0) H 05/17/16 08:14 INR 2.13 (0.83-1.16) H 05/17/16 08:14 Physical Exam - Physical Exam General Appearance: WD/WN, no apparent distress, obese Neck: non-tender, full range of motion Respiratory: lungs clear Cardiac/Chest: regular rate, rhythm, No edema, No gallop, No JVD Peripheral Pulses: 2+: carotid (R), carotid (L) Abdomen: normal bowel sounds, non-tender, soft Extremities: No swelling Neuro/Psych: alert, normal mood/affect ICD10 Worksheet Patient Problems: Problems Problem Status Diagnosed Atrial fibrillation or flutter Acute Bradycardia Acute CHF (congestive heart failure) Acute Chest pain Acute Elevated troponin Acute
--- NOTE | 2016-05-17 13:05 | GCON ---
[f rep st] CONSULTATION GI INPATIENT CONSULTATION DATE OF CONSULTATION: 05/17/2016 I was requested to see the patient by Dr. Cristi Mederos. HISTORY OF PRESENT ILLNESS: The patient is a pleasant 65-year-old female I am asked to see in consultation for a chief complaint of digestive symptoms. She has a long history of the above. For the last year, she has had mostly trouble with epigastric abdominal pain that she describes as a cramp or discomfort. With this, she can have belching, gas, bloating. She can also have nausea. The symptoms come and go. She does find that they are better with bowel movement. She denies heartburn. Besides the above, she has also lately had some trouble with a sense of incomplete evacuation. She has a bowel movement daily, but feels at other times she needs to go but without any results. She has a long history of epigastric pain, dating back to 2010 when she saw my partner, Dr. Mena. Workup then included a normal colonoscopy, normal terminal ilium. Upper endoscopy showed only some mild antral erosions, but her CLOtest was positive. She was treated with Prevpak. She never was tested for eradication. Because of some continued epigastric pain, despite the above, she was placed on Prilosec. She states this helped greatly. For her most recent symptoms, she was just very recently restarted on a proton pump inhibitor. She did undergo XRT 10 years ago after a hysterectomy, and states much of her digestive problems began after this. She has a significant cardiac history, including coronary artery disease, atrial fibrillation, episodes of ventricular tachycardia, pacemaker, heart failure, cardiomyopathy. She is on a significant amount of cardiac medications , including aspirin, KCL. PAST MEDICAL HISTORY: As above. Diverticulosis. Otherwise, noncontributory. ALLERGIES: No known drug allergies. MEDICATIONS: Inpatient medications include: Aspirin, Lipitor, Coreg, Colace, Zofran as needed, which helps, Diovan, Aldactone, torsemide, valsartan, Coumadin , potassium chloride, and Protonix 40 mg twice a day. SOCIAL HISTORY: She denies alcohol abuse. FAMILY HISTORY: Negative for similar abdominal symptoms. REVIEW OF SYSTEMS: Positive pertinent review of systems, as per my HPI. Otherwise, her review of systems is negative to make a total of 10 systems. PHYSICAL EXAMINATION: GENERAL: Nontoxic-appearing, pleasant woman. VITAL SIGNS: Stable. SKIN: Warm, dry. EYES: Pupils equal, round, and reactive to light and accommodation. ENT: Oropharynx without masses. Moist mucosa. NECK : Without thyromegaly. No lymphadenopathy. HEART: Normal S2. Normal PMI. LUNGS: Clear to auscultation and percussion anteriorly. ABDOMEN: Profuse, nontender. RECTAL: Deferred. EXTREMITIES: Without cyanosis or clubbing. NEUROLOGIC: She is grossly nonfocal. Cranial nerves grossly intact. PSYCH: Orientation, insight appropriate. MUSCULOSKELETAL: Strength is grossly normal throughout. Normal station. LABORATORIES: Include the above. Slightly elevated alkaline phosphatase and total bilirubin with the rest of her liver tests normal. Urinalysis negative. Normal basic metabolic panel. Normal CBC except for a slightly low platelet count of 140,000. Slightly elevated TSH, but with a normal free T4 and free T3. Prothrombin time 24, with an INR of 2.13. ASSESSMENT: 1. Epigastric abdominal crampy discomfort, with fullness, belching, gas, bloating, and a sense of incomplete evacuation. With the above benefitting six years ago with Prilosec, this could represent an acid sensitivity problem. She is now back on a PPI, but just recently, so possibly it has not "kicked in" yet. Failure of eradicaton of H. pylori is also possible. A new structural lesion of the upper GI tract such as peptic ulcer disease, etc., is possible, but less likely. With her symptoms feeling better with a bowel movement, some element of functional constipation, even possibly irritable bowel syndrome, might be responsible for all the above chronic symptoms. Another possibility could be some chronic scarring or dysmotility of the small bowel from her past XRT therapy. Atypical cholelithiasis causing epigastric pain, nausea, etc., is possible. Finally, with her significant cardiac history, multiple medications, including aspirin and potassium, certainly secondary gastrointestinal symptoms from heart disease or medications is possible. 2. Slightly elevated alkaline phosphatase and total bilirubin. Suspect due to some right-sided heart failure only. An element of fatty liver is also possible. PLAN: 1. More time on Protonix 40 mg twice a day. I suspect this may start to "kick in" and help her. 2. In addition, we will try and help her have a more complete bowel movement, as this seems to help. We will give her today 1 dose of milk of magnesia and if no benefit, we will repeat that in 10 hours. 3. Stool for H pylori. 4. Right upper quadrant ultrasound. 5. If no improvement in her symptoms, she might require repeat upper endoscopy. Thank you for allowing me to help in the management of this patient. /[id number]/MODL MTDD
--- NOTE | 2016-05-17 15:20 | US ---
Ultrasound Abdomen Limited History: Abdominal pain. Findings: The liver measures 18 cm. No focal liver lesion is identified. No evidence for intrahepatic or extrahepatic biliary ductal dilatation. The common bile duct measures 5 mm. Gallbladder is normal in appearance without evidence for cholelithiasis or cholecystitis. Pancreas is unremarkable. Abdomi nal aorta is normal in diameter. Right kidney measures 10.4 cm in length and demonstrates no evidence for mass or hydronephrosis. No significant free fluid. Portal vein is patent. Impression: Normal right upper quadrant ultrasound.
[2016-05-17] MEDS: WARFARIN SODIUM 2.5 MG TAB PO SCH (16:10)
[2016-05-17] MEDS: CARVEDILOL 6.25 MG TAB PO SCH (17:51)
[2016-05-17] MEDS: TEMAZEPAM 15 MG CAP PO PRN (23:17)
[2016-05-18 05:47] LABS: INR 2.5 (0.83-1.16); PROTIME(PATIENT) 27.3 SEC (12.0-15.0)
[2016-05-18] MEDS: AMIODARONE HCL 200 MG TAB PO SCH ×2 (06:22→14:51)
[2016-05-18] MEDS: POTASSIUM CL 20 MEQ TAB PO SCH (09:11)
[2016-05-18] MEDS: ATORVASTATIN CALCIUM 40 MG TAB PO SCH (09:11)
[2016-05-18] MEDS: PANTOPRAZOLE SODIUM 40 MG TAB PO SCH (09:12)
[2016-05-18] MEDS: ASPIRIN EC 81 MG TAB PO SCH (09:12)
[2016-05-18] MEDS: SERTRALINE HCL 50 MG TAB PO SCH (09:12)
[2016-05-18] MEDS: CARVEDILOL 6.25 MG TAB PO SCH (09:12)
[2016-05-18] MEDS: DOCUSATE SODIUM 100 MG CAP PO SCH (09:12)
[2016-05-18] MEDS: VALSARTAN 40 MG TAB PO SCH (09:12)
[2016-05-18] MEDS ORDERED: MAGNESIUM HYDROXIDE 30 ML UDCUP PO ONE (10:00)
[2016-05-18 11:43] VITALS: BP 81/55; PULSE 76; RESP 10; TEMP 98.1; O2SAT 90
[2016-05-18] MEDS: WARFARIN SODIUM 2.5 MG TAB PO SCH (14:51)
--- NOTE | 2016-05-18 16:09 | SOAPPROG ---
SOAP Progress Note Assessment/Plan: Assessment/Plan: Digestive symptoms, including epigastric discomfort, sense of incomplete evacuation, etc. Now, after a good b.m. with M.O.M., and with more time back on her PPI, doing well. - agree with d/c home - recommend miralax daily, at least for several months. Then, if she wishes, she can try stopping this, see how she does on her own. - recommend generic PPI daily assisted - f/u PCP I will sign off; I will f/u on stool for H. pylori. Else, please call if we can be of further help [phone]. Thanks! 05/18/16 16:06 Subjective: cc: digestive symptoms Doing well. No significant abdominal pain, nausea, chills. Good b.m. with M.O.M. Objective: Vital Signs Temp Pulse Resp BP Pulse Ox 36.7 C 76 10 L 81/55 L 90 L 05/18/16 11:41 05/18/16 11:41 05/18/16 11:41 05/18/16 11:41 05/18/16 11:41 Laboratory Results 05/12/16 05:19 05/17/16 08:14 05/17/16 05/18/16 05/19/16 05:59 05:59 05:59 Intake Total 1450 1500 Output Total 1750 200 200 Balance -300 1300 -200 PT 27.3 SEC (12.0-15.0) H 05/18/16 04:38 INR 2.50 (0.83-1.16) H 05/18/16 04:38 RUQ US negative. Stool for H. pylori pending. Physical Exam - Physical Exam General Appearance: WD/WN, alert, no apparent distress EENT: PERRL/EOMI, normal ENT inspection, pharynx normal, TMs normal Neck: non-tender, full range of motion, supple, normal inspection Respiratory: chest non-tender, lungs clear, normal breath sounds Cardiac/Chest: normal peripheral pulses, regular rate, rhythm Peripheral Pulses: 2+: carotid (R), carotid (L), femoral (R), femoral (L), dorsalis-pedis (R), dorsalis-pedis (L) Abdomen: normal bowel sounds, non-tender, soft Pelvic Exam: deferred Rectal: deferred Back: Normal inspection Skin: normal color, warm/dry Lymphatic: no adenopathy Extremities: normal range of motion, non-tender, normal inspection, normal capillary refill Neuro/Psych: no motor/sensory deficits, alert, normal mood/affect, oriented x 3 ICD10 Worksheet Patient Problems: Problems Problem Status Diagnosed Atrial fibrillation or flutter Acute Bradycardia Acute CHF (congestive heart failure) Acute Chest pain Acute Elevated troponin Acute
--- NOTE | 2016-05-18 21:45 | GDS ---
[f rep st] DISCHARGE SUMMARY DISCHARGE DIAGNOSES: 1. Sustained ventricular tachycardia on amiodarone. 2. Upgrade to a biventricular implantable cardioverter-defibrillator. 3. Coronary artery disease with prior stenting to the left anterior descending in 2006. An angiogram in February 2016 revealed [id number] coronary disease without any evidence of obstruction. 4. Chronic systolic heart failure. 5. Ischemic cardiomyopathy with an ejection fraction of 35%, consider sarcoid. 6. Paroxysmal atrial fibrillation and paroxysmal atrial tachycardia with a recent failed ablation. 7. Epigastric fullness. CONSULTATIONS: Regan Pacheco MD, [facility] COURSE: For a detailed H and P, please see prior dictation. Briefly, [place] is a 65-year-old female with a history of cardiomyopathy with an ejection fraction of 35% and coronary artery disease with prior stenting to her LAD in 2006. A repeat angiogram in February 2016 revealed [id number] coronary disease without any evidence of obstruction. She also has chronic systolic congestive heart failure and paroxysmal atrial fibrillation and atrial tachycardia. She presented to our office complaining of fatigue and dyspnea on exertion. She was found to be in congestive heart failure, as well as was having sustained episodes of ventricular tachycardia lasting up to 9 minutes. She was ultimately admitted to the hospital and started on amiodarone with an improvement in her ventricular tachycardia. She was also diuresed with IV Lasix with improvement in her congestive heart failure. Her pacemaker was also upgraded to a bi-V ICD by Dr. Roverto Castillo. During her hospitalization, she became hypotensive and therefore her ARB and beta-staci had to be held. One day prior to discharge, these were resumed. She did become hypotensive with a blood pressure of 79/55. She was not symptomatic with this. She was on Coumadin for CVA prophylaxis. It was supratherapeutic on admission at 4.92. Her Coumadin was held to allow for an upgrade to her bi-V ICD. It was then resumed. On the day of discharge, her INR was 2.50. The day prior to discharge, she complained of epigastric fullness and a variety of other GI complaints. Dr. Regan Pacheco was consulted and she was started on milk of magnesia and her Protonix was increased. She was also checked for H pylori which is currently pending. An ultrasound of her right upper quadrant was performed as well and was normal. She was able to have a bowel movement the following day with an improvement in her symptoms. These episodes of epigastric fullness have been present for the past year and are intermittent. She is followed by GI. Prior to her admission, she had just been started on a proton pump inhibitor, but had only taken it for 1-2 days prior to her admission. PHYSICAL EXAMINATION: GENERAL: The patient appears in no acute distress. VITAL SIGNS: Blood pressure 89/68, heart rate 76, oxygen saturation 90% on room air, afebrile. LUNGS: Clear to auscultation. No wheezes, rhonchi, or crackles auscultated. CARDIAC: Regular rate and rhythm without any significant murmurs, rubs or gallops appreciated. CHEST: Her ICD site is clean , intact, without any evidence of infection or hematoma. Her mony have been removed and Steri-Strips placed. EXTREMITIES: Palpable pulses bilaterally without any evidence of edema. ABDOMEN: Soft, nontender, nondistended. Bowel sounds present. DISCHARGE MEDICATIONS: Her medications have been adjusted. Amiodarone 200 mg 2 tabs p.o. daily x7 days, then 200 mg daily, Tylenol p.r.n. for pain, aspirin 81 mg daily, Coumadin 2.5 mg Wednesday, Wednesday, Wednesday, and 1.25 mg Wednesday, Wednesday, , and Wednesday (the day of discharge, she will only take 1.25 mg), valsartan 40 mg daily, Demadex 20 mg daily, Zoloft 75 mg daily, potassium 20 mEq daily, MiraLAX 17 g daily, Protonix 40 mg daily, herbal supplement daily, Coreg 6.25 mg b.i.d., Lipitor 40 mg daily, spironolactone 25 mg daily, nitroglycerin p.r.n. for chest pain. PLAN: The patient was admitted with sustained ventricular tachycardia and was started on amiodarone. She is currently in normal sinus rhythm. She had a recent angiogram which was negative for obstructive coronary disease. Her device was upgraded to a bi-V ICD during her hospitalization. Her mony were removed and the site looks clean, intact, without any evidence of hematoma or infection. Her device was also interrogated prior to discharge and was working properly. Her medications have been adjusted, as stated above. She was hypotensive on the day of discharge, but her blood pressure came up in the afternoon. I have recommended that she begin taking her Diovan in the evenings. If she develops symptoms of hypotension, she will contact our office. Her BUN/creatinine is slightly elevated 25/1.1. She will hold her diuretics x1 more day. She is on Coumadin for CVA prophylaxis. She is aware that amiodarone can increase her INR. Her Coumadin dose has been adjusted, and she is scheduled for a PT/INR on of this week. Her next 3 followup visits have also been scheduled add to her discharge instruction. Lastly, she will need to follow up with GI for her H pylori results and further treatment recommendations of her epigastric fullness. Greater than 30 minutes was spent coordinating the patients care today. /[id number]/MODL BROOKS
[2016-05-19] MEDS ORDERED: POLYETHYLENE GLYCOL 3350 17 GM PKT PO SCH (09:00)
[2016-05-19] MEDS ORDERED: PANTOPRAZOLE SODIUM 40 MG TAB PO SCH (09:00)
== END 2016-05-18 16:08 | disposition home or self-care (01) | DRG 227 ==
LOC: OBSVTOIN 15:50 → F2W 15:50
PROVIDERS: ADMIT Internal Medicine Cardiovascular Disease; ATTEND Internal Medicine Interventional Cardiology
PROC: 0JPT0PZ Removal of Cardiac Rhythm Related Device from Trunk Subcutaneous Tissue and Fascia, Open Approach (ICD-10-PCS; principal; 2016-05-11)
PROC: 02HK3KZ Insertion of Defibrillator Lead into Right Ventricle, Percutaneous Approach (ICD-10-PCS; principal; 2016-05-11)
PROC: 0JH609Z Insertion of Cardiac Resynchronization Defibrillator Pulse Generator into Chest Subcutaneous Tissue and Fascia, Open Approach (ICD-10-PCS; principal; 2016-05-11)
DX: I50.22 Chronic systolic (congestive) heart failure (principal); I47.1 Supraventricular tachycardia; I25.5 Ischemic cardiomyopathy; I25.10 Atherosclerotic heart disease of native coronary artery without angina pectoris; I48.2 Chronic atrial fibrillation; I47.2 Ventricular tachycardia; R10.13 Epigastric pain; J98.11 Atelectasis; I95.9 Hypotension, unspecified; E78.5 Hyperlipidemia, unspecified; E66.9 Obesity, unspecified; Z95.0 Presence of cardiac pacemaker; Z95.5 Presence of coronary angioplasty implant and graft; Z68.35 Body mass index [BMI] 35.0-35.9, adult; Z79.82 Long term (current) use of aspirin; Z79.01 Long term (current) use of anticoagulants
CPT/HCPCS: 84481-90; 87338-90; C1769; C1777; C1882; J0282; J0690; J2001; J2250; J2405; J2704; Q9967